=== PATIENT | male | born 1970 | race Caucasian/White ===

== ENCOUNTER 2021-05-20 11:38 | Emergency (ER) | payer MEDICAID ==
[2021-05-20] MEDS ORDERED: CEPHALEXIN500 MG PO (12:09)
[2021-05-20] MEDS ORDERED: BACTRIM DS TAB1 EACH PO (12:09)
== END 2021-05-20 12:35 | disposition home or self-care (01) ==
LOC: ER1 11:38
DX: L73.9 Follicular disorder, unspecified (principal)
CPT/HCPCS: 96372; 99283; J1885